=== PATIENT | male | born 1985 | race Caucasian/White ===

== ENCOUNTER 2017-01-13 07:55 | Emergency (ER) | payer OTHER ==
[2017-01-13 08:02] VITALS: RESP 18
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
[2017-01-13 09:28] VITALS: BP 162/88; PULSE 87; TEMP 98
== END 2017-01-13 09:27 | disposition home or self-care (01) ==
LOC: EC 07:55
DX: S49.91XA Unspecified injury of right shoulder and upper arm, initial encounter (principal); M54.5 Low back pain; V43.54XA Car driver injured in collision with van in traffic accident, initial encounter; Y92.410 Unspecified street and highway as the place of occurrence of the external cause
CPT/HCPCS: 72100; 99284

== ENCOUNTER 2019-05-01 00:11 | Emergency (ER) | payer BC, OTHER ==
[2019-05-01 00:36] VITALS: TEMP 98
--- NOTE | 2019-05-01 01:00 | XR ---
EXAMINATION TYPE: XR chest 2V DATE OF EXAM: 05/01/2019 COMPARISON: 11/10/2014 HISTORY: Cough and congestion TECHNIQUE: FINDINGS: Heart and mediastinum are normal. Lungs are clear. Diaphragm is normal. Bony thorax appears normal. IMPRESSION: Normal chest. No change.
[2019-05-01] MEDS ORDERED: IPRATROPIUM-ALBUTEROL 3 ML NEB INHALATION STA (01:25)
--- NOTE | 2019-05-01 01:29 | ED ---
URI HPI - General Chief Complaint: Upper Respiratory Infection Stated Complaint: wheezing, cough Time Seen by Provider: 05/01/19 01:18 Source: patient, family Mode of arrival: ambulatory Limitations: no limitations - History of Present Illness Initial Comments: 33-year-old male patient presents to the emergency department today for evaluation of upper respiratory symptoms and shortness of breath. Patient states he has been sick for the last couple of days with symptoms. Patient does have a history of asthma and has been wheezing with this illness. Reports nasal congestion and drainage. He does report sore throat and pressure to his ears. He states he has been having hot and cold flashes but has no documented temperatures. Denies taking any medication for his symptoms. He states he has been told has had a heart condition in the past but stopped taking medications about a year ago for this. Patient denies any recent rash, chest pain, abdominal pain, nausea, vomiting, diarrhea, constipation, back pain, numbness, tingling, dizziness, weakness, hematuria, dysuria, urinary urgency, urinary frequency, headache, visual changes, or any other complaints. - Related Data Previous Rx's Medication Instructions Recorded Ibuprofen [Motrin] 600 mg PO Q6HR PRN #30 day 01/13/17 Albuterol Sulfate [Proair Hfa] 1 - 2 puff INHALATION Q6HR PRN #1 05/01/19 inhaler guaiFENesin-DM 600/30MG [Mucinex 1 each PO Q12HR #10 tab.er.12h 05/01/19 Dm] predniSONE 50 mg PO DAILY #5 tablet 05/01/19 Allergies Allergy/AdvReac Type Severity Reaction Status Date / Time amoxicillin Allergy Rash/Hives Verified 05/01/19 00:36 Review of Systems ROS Statement: Those systems with pertinent positive or pertinent negative responses have been documented in the HPI. ROS Other: All systems not noted in ROS Statement are negative. Past Medical History Past Medical History: Hypertension History of Any Multi-Drug Resistant Organisms: None Reported Past Surgical History: No Surgical Hx Reported Past Psychological History: No Psychological Hx Reported Smoking Status: Never smoker Past Alcohol Use History: None Reported Past Drug Use History: None Reported General Exam Limitations: no limitations General appearance: alert, in no apparent distress, other (Physical well- developed, well-nourished adult male patient in no acute distress. Vital signs upon presentation are temperature 98.0F, pulse 91, respirations 20, blood pressure 174/115, pulse ox 97% on room air.) Eye exam: Present: normal appearance, PERRL, EOMI. Absent: scleral icterus, conjunctival injection, periorbital swelling ENT exam: Present: mucous membranes moist, TM's normal bilaterally. Absent: normal oropharynx (Pharyngeal erythema) Respiratory exam: Present: wheezes (Mild x-ray wheezing noted in the posterior lung zamora). Absent: respiratory distress, rales, rhonchi, stridor Cardiovascular Exam: Present: regular rate, normal rhythm, normal heart sounds. Absent: systolic murmur, diastolic murmur, rubs, gallop, clicks GI/Abdominal exam: Present: soft, normal bowel sounds. Absent: distended, tenderness, guarding, rebound, rigid Neurological exam: Present: alert, oriented X3, CN II-XII intact Psychiatric exam: Present: normal affect, normal mood Skin exam: Present: warm, dry, intact, normal color. Absent: rash Course Vital Signs 05/01/19 05/01/19 05/01/19 00:31 01:37 01:48 Temperature 98 F Pulse Rate 91 102 H 98 Respiratory 20 Rate Blood Pressure 174/115 O2 Sat by Pulse 97 Oximetry 05/01/19 02:12 Temperature Pulse Rate 96 Respiratory 18 Rate Blood Pressure 145/80 O2 Sat by Pulse 95 Oximetry Medical Decision Making - Medical Decision Making 33-year-old male patient presents to the emergency department today for evaluation of cough, congestion, and wheezing. Physical examination reveals mild expiratory wheezing in the posterior lung zamora. He is not short of breath. Chest x-ray shows no acute cardio pulmonary process. He was given a DuoNeb breathing treatment Mucinex DM. He is also started on steroids. Influenza testing was negative. He'll be discharged with prednisone, Pro Air, and Mucinex. Is instructed to follow-up with his primary care physician for recheck in 1-2 days. Return parameters discussed in detail. He verbalizes understanding and agrees with this plan. - Lab Data Lab Results 05/01/19 Range/Units 00:38 Influenza Type A RNA Not Detected (Not Detectd) Influenza Type B (PCR) Not Detected (Not Detectd) - Radiology Data Radiology results: report reviewed, image reviewed Two-view x-ray of the chest is obtained. Report reviewed in its entirety. Impression by Dr. Salazar shows normal chest. No change. Disposition Clinical Impression: Upper respiratory infection Disposition: HOME SELF-CARE Condition: Good Instructions (If sedation given, give patient instructions): Upper Respiratory Infection (ED) Additional Instructions: Take medications as directed. Increase fluids. Follow-up with your primary care physician for recheck in 1-2 days. Return to the emergency department immediately for any new, worsening, or concerning symptoms. Prescriptions: guaiFENesin-DM 600/30MG [Mucinex Dm] 1 each PO Q12HR #10 tab.er.12h predniSONE 50 mg PO DAILY #5 tablet Albuterol Sulfate [Proair Hfa] 1 - 2 puff INHALATION Q6HR PRN #1 inhaler PRN Reason: Shortness Of Breath Is patient prescribed a controlled substance at d/c from ED?: No Referrals: Evangelist Rosales MD [REFERRING] - 1-2 days Time of Disposition: 01:57
[2019-05-01] MEDS ORDERED: guaiFENesin-DM 600/30MG 1 EACH TAB.ER.12H PO ONE (01:35)
[2019-05-01] MEDS ORDERED: predniSONE 50 MG TAB PO STA (01:38)
[2019-05-01 02:14] VITALS: BP 145/80; PULSE 96; RESP 18
== END 2019-05-01 02:12 | disposition home or self-care (01) ==
LOC: EC 00:11
DX: J06.9 Acute upper respiratory infection, unspecified (principal); I10 Essential (primary) hypertension; Z88.0 Allergy status to penicillin
CPT/HCPCS: 94640; 87502; 71046; 99285; J7512

== ENCOUNTER 2020-07-08 17:07 | Emergency (ER) | payer BC, OTHER ==
[2020-07-08 17:14] VITALS: BP 158/93; PULSE 87; RESP 20; TEMP 98
[2020-07-08] MEDS ORDERED: LIDOCAINE 1% INJ 10MG/ML (20 ML MDV) SQ STA (17:24)
--- NOTE | 2020-07-08 17:25 | ED ---
Wound/Laceration HPI - General Chief Complaint: Wound/Laceration Stated Complaint: R Arm Lac Time Seen by Provider: 07/08/20 17:16 Source: patient, RN notes reviewed Mode of arrival: ambulatory Limitations: no limitations - History of Present Illness Initial Comments: 35-year-old white male obese patient presents to the emergency room with approximately 8 cm superficial laceration to the right dorsal forearm obtained 45 minutes prior to arrival on sheet metal. Patient states washed at home with hydrogen peroxide. States tetanus shot is not up-to-date. -: minutes(s) (45) Location: other (right forearm) Extremity Location: Right: Forearm Place: work Patient Tetanus UTD: No Context: accidental (sheet metal) Associated Symptoms: none - Related Data Previous Rx's Medication Instructions Recorded Ibuprofen [Motrin] 600 mg PO Q6HR PRN #30 day 01/13/17 Albuterol Sulfate [Proair Hfa] 1 - 2 puff INHALATION Q6HR PRN #1 05/01/19 inhaler guaiFENesin-DM 600/30MG [Mucinex 1 each PO Q12HR #10 tab.er.12h 05/01/19 Dm] predniSONE 50 mg PO DAILY #5 tablet 05/01/19 Allergies Allergy/AdvReac Type Severity Reaction Status Date / Time amoxicillin Allergy Rash/Hives Verified 07/08/20 17:14 Review of Systems ROS Statement: Those systems with pertinent positive or pertinent negative responses have been documented in the HPI. ROS Other: All systems not noted in ROS Statement are negative. Past Medical History Past Medical History: Hypertension History of Any Multi-Drug Resistant Organisms: None Reported Past Surgical History: No Surgical Hx Reported Past Psychological History: No Psychological Hx Reported Smoking Status: Never smoker Past Alcohol Use History: None Reported Past Drug Use History: None Reported General Exam Limitations: no limitations General appearance: alert, in no apparent distress Head exam: Present: atraumatic, normocephalic, normal inspection Eye exam: Present: normal appearance (wears glasses), PERRL, EOMI. Absent: scleral icterus, conjunctival injection, periorbital swelling Cardiovascular Exam: Present: regular rate, normal rhythm, normal heart sounds. Absent: systolic murmur, diastolic murmur, rubs, gallop, clicks Right Forearm Wrist exam: Present: laceration (8cm laceration superficial, no active bleeding) Neurological exam: Present: alert, oriented X3, CN II-XII intact Psychiatric exam: Present: normal affect, normal mood Skin exam: Present: warm, dry, intact, normal color. Absent: rash Course Vital Signs 07/08/20 17:11 Temperature 98.0 F Pulse Rate 87 Respiratory 20 Rate Blood Pressure 158/93 O2 Sat by Pulse 99 Oximetry Medical Decision Making - Medical Decision Making 8 cm laceration of right forearm superficial, cut on sheet metal at home, irrigated with water and peroxide prior to arrival.. tetanus updated today. 12 sutures placed for Vicryl. Case discussed with Dr. Espino. Disposition Clinical Impression: Arm laceration, Laceration Disposition: HOME SELF-CARE Condition: Good Additional Instructions: Sutures to be removed in 7-10 days. Please return to the emergency room if signs or symptoms of infection. Is patient prescribed a controlled substance at d/c from ED?: No Referrals: Evangelist Rosales MD [Primary Care Provider] - 1-2 days Time of Disposition: 18:14
[2020-07-08] MEDS ORDERED: DIPH,PERTUS(ACELL)TETVAC-LF 0.5 ML VIAL IM ONE (17:32)
--- NOTE | 2020-07-08 18:20 | ED ---
Disposition Clinical Impression: Arm laceration, Laceration Disposition: HOME SELF-CARE Condition: Good Additional Instructions: Sutures to be removed in 7-10 days. Please return to the emergency room if signs or symptoms of infection. Is patient prescribed a controlled substance at d/c from ED?: No Referrals: Evangelist Rosales MD [Primary Care Provider] - 1-2 days Procedures - Laceration Laceration #1 Indication: laceration Site: other (forearm) Size (cm): 8 (right dorsal forearm) Anesthetic Used: lidocaine 1% Anesthesia Technique: local infiltration Pre-repair: irrigated extensively Type of Sutures: nylon Size of Sutures: 4-0 Number of Sutures: 12 Technique: simple, interrupted Patient Tolerated Procedure: well, no complications
== END 2020-07-08 18:27 | disposition home or self-care (01) ==
LOC: EC 17:07
DX: S51.811A Laceration without foreign body of right forearm, initial encounter (principal); Z88.0 Allergy status to penicillin; Z23 Encounter for immunization; W26.8XXA Contact with other sharp object(s), not elsewhere classified, initial encounter; Y92.69 Other specified industrial and construction area as the place of occurrence of the external cause; Y99.0 Civilian activity done for income or pay
CPT/HCPCS: 90715; 99282; 12004; 90471; J2001

== ENCOUNTER 2024-02-27 10:19 | Emergency (ER) | payer BC, OTHER ==
[2024-02-27 10:49] VITALS: RESP 18
[2024-02-27] MEDS: HYDROcodone/APAP 10-325MG 1 EACH TAB PO ONE ×2 (11:40→13:11)
[2024-02-27] MEDS: ORPHENADRINE 30 MG/ML 2 ML VIAL IM STA (11:40)
[2024-02-27] MEDS: DEXAMETHASONE SOD PHOSPHATE 10 MG/ML 1 ML VIAL IM STA (11:41)
[2024-02-27] MEDS: KETOROLAC 15 MG/ML 1 ML VIAL IM STA (11:41)
[2024-02-27] MEDS: LIDOCAINE 4% PATCH TOPICAL ONE (11:46)
--- NOTE | 2024-02-27 12:03 | ED ---
Back Pain HPI - General Chief Complaint: Back Pain/Injury Stated Complaint: back pain Time Seen by Provider: 02/27/24 11:03 Source: patient, RN notes reviewed Mode of arrival: ambulatory Limitations: no limitations - History of Present Illness Initial Comments: This is a 38-year-old male who presents to the emergency department for back pain. Patient reports right lower back pain over the last week. States that this has started to radiate down into his right leg. Denies any injuries or history of similar symptoms in the past. No history of sciatica. He is taking ibuprofen without any relief in symptoms. Denies any loss of bowel/bladder control or saddle anesthesia. MD Complaint: back pain - Related Data Previous Rx's Medication Instructions Recorded Ibuprofen [Motrin] 600 mg PO Q6HR PRN #30 day 01/13/17 Albuterol Sulfate [Proair Hfa] 1 - 2 puff INHALATION Q6HR PRN #1 05/01/19 inhaler guaiFENesin-DM 600/30MG [Mucinex 1 each PO Q12HR #10 tab.er.12h 05/01/19 Dm] predniSONE 50 mg PO DAILY #5 tablet 05/01/19 Lidocaine 5% Patch [Lidoderm 5% 1 patch TOPICAL DAILY PRN #30 patch 02/27/24 Patch] methocarbamoL [Robaxin-750] 1,500 mg PO TID PRN #30 tab 02/27/24 predniSONE 50 mg PO DAILY 5 Days #5 tab 02/27/24 Allergies Allergy/AdvReac Type Severity Reaction Status Date / Time amoxicillin Allergy Rash/Hives Verified 02/27/24 10:49 Review of Systems ROS Statement: Those systems with pertinent positive or pertinent negative responses have been documented in the HPI. ROS Other: All systems not noted in ROS Statement are negative. Past Medical History Past Medical History: Hypertension History of Any Multi-Drug Resistant Organisms: None Reported Past Surgical History: No Surgical Hx Reported Past Psychological History: No Psychological Hx Reported Smoking Status: Never smoker Past Alcohol Use History: None Reported Past Drug Use History: None Reported General Exam Limitations: no limitations General appearance: alert, in no apparent distress Head exam: Present: atraumatic, normocephalic, normal inspection Respiratory exam: Present: normal lung sounds bilaterally. Absent: respiratory distress, wheezes, rales, rhonchi, stridor Cardiovascular Exam: Present: regular rate, normal rhythm, normal heart sounds. Absent: systolic murmur, diastolic murmur, rubs, gallop, clicks Back exam: Present: other (Tenderness over the right lower back) Neurological exam: Present: alert, oriented X3, CN II-XII intact Psychiatric exam: Present: normal affect, normal mood Skin exam: Present: warm, dry, intact, normal color. Absent: rash Course Vital Signs 02/27/24 02/27/24 10:45 13:13 Temperature 98.1 F 97.9 F Pulse Rate 88 82 Respiratory 18 18 Rate Blood Pressure 140/86 136/80 O2 Sat by Pulse 95 96 Oximetry Medical Decision Making - Medical Decision Making This is a 38-year-old male who presents to the emergency department for back pain. Was pt. sent in by a medical professional or institution? @ -No Did you speak to anyone other than the patient for history? @ -No Did you review nursing and triage notes? @ -Yes, and I agree, it is accurate with regards to the patient's symptoms. Were old charts reviewed? @ -No Differential Diagnosis? @ -Differential Back Pain: Strain, zoster, cauda equina syndrome, epidural abscess, vertebral osteomyelitis, discitis, fracture, subluxation, disc herniation, DJD, spinal stenosis, dissection, AAA, pancreatitis, peptic ulcer disease, pyelonephritis, kidney stone, this is not meant to be an all-inclusive list. EKG interpreted by me (3pts min.)? @ -Not obtained X-rays interpreted by me (1pt min.)? @ -X-ray of the lumbar spine obtained. My interpretation identifies no acute fractures. CT interpreted by me (1pt min.)? @ -Not obtained U/S interpreted by me (1pt. min.)? @ -Not obtained What testing was considered but not performed? (CT, X-rays, U/S, labs)? Why? @ -None What meds were considered but not given? Why? @ -None Did you discuss the management of the patient with other professionals? @ -No Did you reconcile home meds? @ -No Was smoking cessation discussed for >3mins.? @ -No Was critical care preformed (if so, how long)? @ -No Were there social determinants of health that impacted care today? How? (Homelessness, low income, unemployed, alcoholism, drug addiction, transportation, low edu. Level, literacy, decrease access to med. care, senior living, rehab)? @ -No Was there de-escalation of care discussed even if they declined? (Discuss DNR or withdrawal of care, Hospice)? @ -No What co-morbidities impacted this encounter? (DM, HTN, Smoking, COPD, CAD, Cancer, CVA, Hep., AIDS, mental health diagnosis, sleep apnea, morbid obesity)? @ -Morbid obesity Was patient admitted / discharged? @ -Discharged. Patient had no red flag signs or symptoms such as loss of bowel/bladder control or saddle anesthesia. X-ray of the lumbar spine demonstrates multilevel mild to moderate degenerative disc disease, chronic appearing wedge deformities at T12, and an age-indeterminate mild superior endplate compression deformity at L1. Findings reviewed with the patient in that these are fairly substantial changes for his age. His pain was managed in the emergency department. Symptoms likely related to lumbar radiculopathy/sciatica. Prescription for prednisone, Robaxin, and lidocaine patches provided. Information for orthopedic follow-up provided for further evaluation of his ongoing symptoms given the findings on imaging. Patient discharged home in stable condition. Case discussed with ED attending Dr. Goldberg. Return precautions reviewed in depth, the patient is instructed to return to the emergency department with any new, worsening, or concerning symptoms. Patient verbalized understanding. Undiagnosed new problem with uncertain prognosis? @ -None Drug Therapy requiring intensive monitoring for toxicity (Heparin, Nitro, Insulin, Cardizem)? @ -None Were any procedures done? @ -None Diagnosis/symptom? @ -Sciatica, lumbar radiculopathy Acute, or Chronic, or Acute on Chronic? @ -Acute Uncomplicated (without systemic symptoms) or Complicated (systemic symptoms)? @ -Uncomplicated Side effects of treatment? @ -None Exacerbation, Progression, or Severe Exacerbation] @ -Not applicable Poses a threat to life or bodily function? @ -No - Radiology Data Radiology results: report reviewed, image reviewed Disposition Clinical Impression: Lumbar radiculopathy, Sciatica Disposition: HOME SELF-CARE Instructions (If sedation given, give patient instructions): Sciatica (ED), Lumbar Radiculopathy (ED) Additional Instructions: Return to the emergency department with any new, worsening, or concerning symptoms. Take the prednisone daily for 5 days. Take the Robaxin as 1 to 2 tablets up to 3-4 times daily. You can also apply the lidocaine patches daily. Reach out to the spine specialists listed below. You should have your pain reevaluated as your back has areas of degeneration and old fractures. Follow up with your primary care provider in 1-2 days. Prescriptions: Lidocaine 5% Patch [Lidoderm 5% Patch] 1 patch TOPICAL DAILY PRN #30 patch PRN Reason: Pain predniSONE 50 mg PO DAILY 5 Days #5 tab methocarbamoL [Robaxin-750] 1,500 mg PO TID PRN #30 tab PRN Reason: Pain Is patient prescribed a controlled substance at d/c from ED?: No Referrals: None,Stated [Primary Care Provider] - 1-2 days Bar Kang DO [Doctor of Osteopathic Medicine] - 1-2 days Kadeem Tariq DO [Doctor of Osteopathic Medicine] - 1-2 days Time of Disposition: 13:03
--- NOTE | 2024-02-27 12:44 | XR ---
EXAMINATION TYPE: XR lumbar spine 2 or 3V DATE OF EXAM: 02/27/2024 12:30 PM COMPARISON: None. CLINICAL INDICATION: Male, 38 years old with history of Pain; TECHNIQUE: XR lumbar spine 2 or 3V views are submitted. FINDINGS: Alignment is anatomic. The pedicles are intact. The transverse processes are intact. There is mini mal loss of vertebral height at the thoracolumbar junction with multilevel hypertrophic and degenerat kavitha disc disease. Facet arthropathy lower lumbar and mid lumbar spine. IMPRESSION: 1. Multilevel [id number] degenerative disc disease most marked at levels T11-L4. 2. Chronic appearing wedge deformities T12. 3. Age-indeterminate mild superior endplate compression deformity L1. [facility], , 02/27/2024 12:41 PM
[2024-02-27] MEDS: ACET/COD 300 MG/30 MG STARTER PACK 6 TAB BTL PO STA (13:10)
[2024-02-27 13:15] VITALS: BP 136/80; PULSE 82; TEMP 97.9
== END 2024-02-27 13:15 | disposition home or self-care (01) ==
LOC: EC 10:19
DX: M54.16 Radiculopathy, lumbar region (principal); M54.31 Sciatica, right side; Z88.0 Allergy status to penicillin
CPT/HCPCS: 72100; 99283; 96372 ×3; J1100; J2360; J1885

== ENCOUNTER 2024-07-04 08:25 | Observation (INO) | payer OTHER ==
--- NOTE | 2024-07-04 09:34 | XR ---
EXAMINATION TYPE: XR chest 2V DATE OF EXAM: 07/04/2024 CLINICAL INDICATION: Male, 39 years old with history of difficulty breathing, TECHNIQUE: Frontal and lateral views of the chest are obtained. COMPARISON: Chest x-ray May 01, 2019 FINDINGS: Elevated left hemidiaphragm is present. Increased interstitial markings bilaterally. There is no focal air space opacity, pleural effusion, or pneumothorax seen. The cardiac silhouette size i s stable and within normal limits. The osseous structures are intact. IMPRESSION: Possible mild bilateral interstitial edema. Correlate clinically for fluid overload state . [facility], , 07/04/2024 9:32 AM
--- NOTE | 2024-07-04 09:44 | ED ---
General Adult HPI - General Chief complaint: Shortness of Breath Stated complaint: SOB, heart beating fast Time Seen by Provider: 07/04/24 08:28 Source: patient, family, RN notes reviewed Mode of arrival: ambulatory Limitations: no limitations - History of Present Illness Initial comments: 39-year-old male presents emergency department with chief complaint of shortness of breath. Patient states has been having worsening shortness of breath over the last month. He states initially started with influenza A states he went back was told he had pneumonia spent multiple rounds of medications with no relief of symptoms. He states he does have a history of asthma he is not on any current medications in which she supposed be on meds for hypertension denies any history of congestive heart failure but states that he has been told that his heart does not pump properly. Patient states he does not have a current primary care physician he states he has had increasing fatigue, shortness of breath, some leg swelling. - Related Data Home Medications Medication Instructions Recorded Confirmed Albuterol Sulfate [Proair Hfa] 2 puff INHALATION RT-QID PRN 07/04/24 07/04/24 Allergies Allergy/AdvReac Type Severity Reaction Status Date / Time amoxicillin Allergy Rash/Hives Verified 07/04/24 10:28 Review of Systems ROS Statement: Those systems with pertinent positive or pertinent negative responses have been documented in the HPI. ROS Other: All systems not noted in ROS Statement are negative. Past Medical History Past Medical History: Hypertension History of Any Multi-Drug Resistant Organisms: None Reported Past Surgical History: No Surgical Hx Reported Past Psychological History: No Psychological Hx Reported Smoking Status: Never smoker Past Alcohol Use History: None Reported Past Drug Use History: None Reported General Exam Limitations: no limitations General appearance: alert, in no apparent distress Head exam: Present: atraumatic, normocephalic, normal inspection Eye exam: Present: normal appearance, PERRL, EOMI. Absent: scleral icterus, conjunctival injection, periorbital swelling ENT exam: Present: normal exam, normal oropharynx, mucous membranes moist Neck exam: Present: normal inspection. Absent: tenderness, meningismus, lymphadenopathy Respiratory exam: Present: wheezes, rales. Absent: respiratory distress, rhonchi, stridor Cardiovascular Exam: Present: normal rhythm, tachycardia, normal heart sounds. Absent: systolic murmur, diastolic murmur, rubs, gallop, clicks GI/Abdominal exam: Present: soft, normal bowel sounds. Absent: distended, tenderness, guarding, rebound, rigid Course Vital Signs 07/04/24 07/04/24 07/04/24 08:31 09:30 10:00 Temperature 98 F Pulse Rate 104 H 82 83 Respiratory 20 20 22 Rate Blood Pressure 158/102 160/88 130/74 O2 Sat by Pulse 99 92 L 92 L Oximetry 07/04/24 07/04/24 11:09 13:18 Temperature Pulse Rate 81 76 Respiratory 20 18 Rate Blood Pressure 154/76 136/75 O2 Sat by Pulse 93 L 90 L Oximetry EKG Findings - EKG Comments: EKG Findings:: EKG performed at 9: 27 sinus rhythm with a rate of 82 KS 136 QRS 107 QT/QTc 357/395 - EKG Results: EKG: interpreted by [facility] Medical Decision Making - Medical Decision Making Was pt. sent in by a medical professional or institution (, PA, [employer], urgent care, hospital, or penitentiary...) When possible be specific @ -No Did you speak to anyone other than the patient for history (EMS, parent, family, police, friend...)? What history was obtained from this source @ -No Did you review nursing and triage notes (agree or disagree)? Why? @ -I reviewed and agree with nursing and triage notes Were old charts reviewed (outside hosp., previous admission, EMS record, old EKG, old radiological studies, urgent care reports/EKG's, penitentiary records)? Report findings @ -No old charts were reviewed Differential Diagnosis (chest pain, altered mental status, abdominal pain women, abdominal pain men, vaginal bleeding, weakness, fever, dyspnea, syncope, headache, dizziness, GI bleed, back pain, seizure, CVA, palpatations, mental health, musculoskeletal)? @ -Differential Dyspnea: Coronary syndrome, arrhythmia, tamponade, asthma, COPD, pulmonary embolism, pneumonia, pneumothorax, pulmonary effusion, anaphylaxis, diabetic ketoacidosis, flailed chest, pulmonary contusion, diaphragmatic rupture, anemia, neuromuscular, this is not meant to be an all-inclusive list. EKG interpreted by me (3pts min.). @ -As above X-rays interpreted by me (1pt min.). @ -Chest x-ray shows mild pulmonary edema CT interpreted by me (1pt min.). @ -CT PE angio chest is nondiagnostic of PE, there is atelectasis, pulmonary edema no effusion U/S interpreted by me (1pt. min.). @ -None done What testing was considered but not performed or refused? (CT, X-rays, U/S, labs)? Why? @ -None What meds were considered but not given or refused? Why? @ -None Did you discuss the management of the patient with other professionals (professionals i.e. , PA, [employer], lab, RT, psych nurse, social insurance administrator, collection systems worker, teacher, licensed mortgage loan officer, immigration case manager)? Give summary @ -[EMH for admission Was smoking cessation discussed for >3mins.? @ -No Was critical care preformed (if so, how long)? @ -No Were there social determinants of health that impacted care today? How? (Homelessness, low income, unemployed, alcoholism, drug addiction, transportation, low edu. Level, literacy, decrease access to med. care, long term, rehab)? @ -No Was there de-escalation of care discussed even if they declined (Discuss DNR or withdrawal of care, Hospice)? DNR status @ -No What co-morbidities impacted this encounter? (DM, HTN, Smoking, COPD, CAD, Cancer, CVA, ARF, Chemo, Hep., AIDS, mental health diagnosis, sleep apnea, morbid obesity)? @ -None Was patient admitted / discharged? Hospital course, mention meds given and route, prescriptions, significant lab abnormalities, going to OR and other pertinent info. @ -Admitted patient has having worsening exertional dyspnea, probable pulmonary edema with a low BNP. The patient did have hypoxic events in which his pulse ox was 88 in the room. Patient does have worsening symptoms with exertion. Patient will be admitted for echocardiogram, cardiology pulmonary evaluation. Undiagnosed new problem with uncertain prognosis? @ -No Drug Therapy requiring intensive monitoring for toxicity (Heparin, Nitro, Insulin, Cardizem)? @ -No Were any procedures done? @ -No Diagnosis/symptom? @ -Exertional dyspnea, hypoxia Acute, or Chronic, or Acute on Chronic? @ -Acute Uncomplicated (without systemic symptoms) or Complicated (systemic symptoms)? @ -Comp Side effects of treatment? @ -No Exacerbation, Progression, or Severe Exacerbation? @ -No Poses a threat to life or bodily function? How? (Chest pain, USA, SC, pneumonia, PE, COPD, DKA, ARF, appy, cholecystitis, CVA, Diverticulitis, Homicidal, Suicidal, threat to staff... and all critical care pts) @ -Yes exertional dyspnea, respiratory failure - Lab Data Result diagrams: 07/04/24 09:18 07/04/24 09:18 Lab Results 07/04/24 07/04/24 07/04/24 Range/Units 09:18 09:18 09:18 WBC 12.1 H (3.8-10.6) k/uL RBC 5.13 (4.30-5.90) m/uL Hgb 14.7 (13.0-17.5) gm/dL Hct 43.7 (39.0-53.0) % MCV 85.3 (80.0-100.0) fL MCH 28.7 (25.0-35.0) pg MCHC 33.6 (31.0-37.0) g/dL RDW 14.1 (11.5-15.5) % Plt Count 200 (150-450) k/uL MPV 7.1 Neutrophils % 69 % Lymphocytes % 24 % Monocytes % 4 % Eosinophils % 2 % Basophils % 0 % Neutrophils # 8.3 H (1.3-7.7) k/uL Lymphocytes # 2.9 (1.0-4.8) k/uL Monocytes # 0.5 (0-1.0) k/uL Eosinophils # 0.3 (0-0.7) k/uL Basophils # 0.0 (0-0.2) k/uL PT 11.5 (10.0-12.5) sec INR 1.1 (<1.2) APTT 23.1 (22.0-30.0) sec D-Dimer 0.65 H (<0.60) mg/L FEU Sodium 137 (137-145) mmol/L Potassium 3.9 (3.5-5.1) mmol/L Chloride 103 (98-107) mmol/L Carbon Dioxide 26 (22-30) mmol/L Anion Gap 8 mmol/L BUN 17 (9-20) mg/dL Creatinine 0.82 (0.66-1.25) mg/dL Est GFR (CKD-EPI)AfAm >90 (>60 ml/min/1.73 sqM) Est GFR (CKD-EPI)NonAf >90 (>60 ml/min/1.73 sqM) Glucose 139 H (74-99) mg/dL Plasma Lactic Acid Pedro Pablo (0.7-2.0) mmol/L Calcium 9.1 (8.4-10.2) mg/dL Magnesium 1.8 (1.6-2.3) mg/dL Total Bilirubin 0.7 (0.2-1.3) mg/dL AST 20 (17-59) U/L ALT 24 (4-49) U/L Alkaline Phosphatase 54 (38-126) U/L Troponin I (0.000-0.034) ng/mL NT-Pro-B Natriuret Pep <20 pg/mL Total Protein 6.8 (6.3-8.2) g/dL Albumin 3.8 (3.5-5.0) g/dL Influenza Type A (PCR) (Not Detectd) Influenza Type B (PCR) (Not Detectd) RSV (PCR) (Not Detectd) SARS-CoV-2 (PCR) (Not Detectd) 07/04/24 07/04/24 07/04/24 Range/Units 09:18 09:18 10:13 WBC (3.8-10.6) k/uL RBC (4.30-5.90) m/uL Hgb (13.0-17.5) gm/dL Hct (39.0-53.0) % MCV (80.0-100.0) fL MCH (25.0-35.0) pg MCHC (31.0-37.0) g/dL RDW (11.5-15.5) % Plt Count (150-450) k/uL MPV Neutrophils % % Lymphocytes % % Monocytes % % Eosinophils % % Basophils % % Neutrophils # (1.3-7.7) k/uL Lymphocytes # (1.0-4.8) k/uL Monocytes # (0-1.0) k/uL Eosinophils # (0-0.7) k/uL Basophils # (0-0.2) k/uL PT (10.0-12.5) sec INR (<1.2) APTT (22.0-30.0) sec D-Dimer (<0.60) mg/L FEU Sodium (137-145) mmol/L Potassium (3.5-5.1) mmol/L Chloride (98-107) mmol/L Carbon Dioxide (22-30) mmol/L Anion Gap mmol/L BUN (9-20) mg/dL Creatinine (0.66-1.25) mg/dL Est GFR (CKD-EPI)AfAm (>60 ml/min/1.73 sqM) Est GFR (CKD-EPI)NonAf (>60 ml/min/1.73 sqM) Glucose (74-99) mg/dL Plasma Lactic Acid Pedro Pablo 1.8 (0.7-2.0) mmol/L Calcium (8.4-10.2) mg/dL Magnesium (1.6-2.3) mg/dL Total Bilirubin (0.2-1.3) mg/dL AST (17-59) U/L ALT (4-49) U/L Alkaline Phosphatase (38-126) U/L Troponin I <0.012 (0.000-0.034) ng/mL NT-Pro-B Natriuret Pep pg/mL Total Protein (6.3-8.2) g/dL Albumin (3.5-5.0) g/dL Influenza Type A (PCR) Not Detected (Not Detectd) Influenza Type B (PCR) Not Detected (Not Detectd) RSV (PCR) Not Detected (Not Detectd) SARS-CoV-2 (PCR) Not Detected (Not Detectd) Disposition Clinical Impression: Exertional dyspnea, Hypoxia Disposition: ADMITTED IP TO THIS HOSP Condition: Fair Referrals: [facility] [NON-STAFF] - 1-2 days (Contact a primary care office to become established with a provider. ) None,Stated [Primary Care Provider] - 1-2 days Forms: Area PCPs Time of Disposition: 12:02
[2024-07-04 09:58] LABS: Basophils % (A) 0 %; Eosinophils # (A) 0.3 k/uL (0-0.7); Eosinophils % (A) 2 %; HCT 43.7 % (39.0-53.0); HGB 14.7 gm/dL (13.0-17.5); Lymphocytes # (A) 2.9 k/uL (1.0-4.8); Lymphocytes % (A) 24 %; MCH 28.7 pg (25.0-35.0); MCHC 33.6 g/dL (31.0-37.0); MCV 85.3 fL (80.0-100.0); Mean Platelet Volume 7.1; Monocytes # (A) 0.5 k/uL (0-1.0); Monocytes % (A) 4 %; Neutrophils # (A) 8.3 k/uL (1.3-7.7); Neutrophils % (A) 69 %; Platelet Count 200 k/uL (150-450); RBC 5.13 m/uL (4.30-5.90); RDW 14.1 % (11.5-15.5); WBC 12.1 k/uL (3.8-10.6)
[2024-07-04 10:01] LABS: INR 1.1 (<1.2); Partial Thromboplastin Time 23.1 sec (22.0-30.0); Prothrombin Time 11.5 sec (10.0-12.5)
[2024-07-04 10:10] LABS: ALT 24 U/L (4-49); AST 20 U/L (17-59); African American GFR (CKD) >90 (>60 ml/min/1.73 sqM); Albumin 3.8 g/dL (3.5-5.0); Alkaline Phosphatase 54 U/L (38-126); Anion Gap 8 mmol/L; Blood Urea Nitrogen 17 mg/dL (9-20); Calcium 9.1 mg/dL (8.4-10.2); Carbon Dioxide 26 mmol/L (22-30); Chloride 103 mmol/L (98-107); Glucose 139 mg/dL (74-99); Magnesium 1.8 mg/dL (1.6-2.3); Non-African American GFR(CKD) >90 (>60 ml/min/1.73 sqM); Potassium 3.9 mmol/L (3.5-5.1); Sodium 137 mmol/L (137-145); Total Bilirubin 0.7 mg/dL (0.2-1.3); Total Protein 6.8 g/dL (6.3-8.2)
[2024-07-04 10:18] LABS: NT-Pro-B-Type Natriuretic Pept <20 pg/mL
[2024-07-04 10:56] LABS: Influenza A Not Detected (Not Detectd); Influenza B Not Detected (Not Detectd); RSV Not Detected (Not Detectd)
--- NOTE | 2024-07-04 11:08 | CT ---
EXAMINATION TYPE: CT chest angio for PE DATE OF EXAM: 07/04/2024 10:55 AM COMPARISON: Chest radiograph from same day. CLINICAL INDICATION: Male, 39 years old with history of sob; DIFFIULTY BREATHING, ELEVATED D DIMER TECHNIQUE/CONTRAST: CTA scan of the thorax is performed with IV Contrast, patient injected with 100ml mL of Isovue 370, M IP images are created and reviewed these are created on a separate workstation.. CT DLP: 1517.6 mGycm, Automated exposure control for dose reduction was used. FINDINGS: Lungs/Pleura: Low lung volumes with some atelectasis changes. Elevated left diaphragm. No evidence of focal consolidation, pleural effusion or pneumothorax. Airway: Large airways are patent. Heart: Size within normal limits. No significant coronary artery calcifications. Vasculature: Nondiagnostic pulmonary embolism exam due to bolus timing. Mediastinum: No gross evidence of adenopathy. Musculoskeletal: No acute osseous abnormalities Soft Tissues/lymph nodes: Unremarkable. Lower neck: No significant findings. Upper Abdomen: No significant findings. IMPRESSION: 1. Nondiagnostic exam for pulmonary embolism due to poor bolus timing. 2. No evidence for focal airspace consolidation. 3. Left elevated diaphragm. [facility], , 07/04/2024 11:06 AM
[2024-07-04] MEDS ORDERED: NALOXONE 0.4 MG/ML 1 ML VIAL IV PRN (12:02)
--- NOTE | 2024-07-05 01:45 | P.CNPUL ---
History of Present Illness Consult date: 07/05/24 Requesting physician: Lee Connolly Reason for consult: dyspnea Chief complaint: Exertional shortness of breath History of present illness: Patient is a 39-year-old male with past medical history significant for hypertension, morbid obesity, asthma. States he does not have a current PCP due to lack of medical insurance which he has just obtained. Of note, recently diagnosed by local urgent care center, in [place], with influenza A infection, this was approximately 6 weeks ago. Unfortunately, did not have any improvement in symptoms. Did go to [facility] approximately 1- 1/2 to 2 weeks ago. Was told he has pneumonia, given antibiotics and discharged home from the emergency department. [place] slightly better but not back to baseline. Chief complaint episodes of dyspnea and heart palpitations with exertion. Presented to our emergency department yesterday morning. Workup in the emergency department including a viral 4 [place] screen which was negative for influenza A/B, RSV, COVID. Chest CTA was essentially nondiagnostic for pulmonary embolism due to poor bolus timing. No evidence of focal airspace disease. Elevated left hemidiaphragm. CBC: WBC count 12.1, hemoglobin 14.7, platelets 200. D-dimer 0.65. CMP unremarkable, electrolytes WDL, creatinine 0.82, glucose 139. Lactic 1.8. EKG: Sinus rhythm, rate 82 bpm, no ischemic changes. Troponin not elevated. NT proBNP also not elevated. Most recent available echocardiogram from 2014 estimating a mildly to moderately impaired left ventricular ejection fraction of 40 to 45%. Patient being evaluated on the cardiac observation unit. Currently on room air oxygen. Endorses above- mentioned symptoms. Occasional cough with clear to yellow sputum. No fevers. States he has been using his albuterol rescue inhaler without much relief. Does have history of adult onset asthma. Lifelong nontobacco smoker. 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 States that his breathing is particularly worse with any kind of exertion. Associated heart palpitations. Denies any lightness or syncopal events. Denies any chest pain. Occasional swelling of the lower extremities which disappears when elevating his legs. Also, reports excessive daytime sleepiness despite sleeping more than 10 hours per night. Reports episodic gasping for air in the middle of the night, which occasionally wakes him from sleep. Most recent reported vitals afebrile, heart rate 73 bpm, blood pressure 114/62 mmHg, nontachypneic, SpO2 rate 94% on room air. Review of Systems Constitutional: Reports fatigue, Denies chills, Denies fever, Denies night sweats, Denies poor appetite, Denies weight gain, Denies weight loss Ears, nose, mouth and throat: Reports sore throat, Denies headache, Denies nasal congestion, Denies nasal discharge, Denies post-nasal drip, Denies sinus pain, Denies sinus pressure Cardiovascular: Reports decreased exercise tolerance, Reports dyspnea on exertion, Reports leg edema, Reports palpitations, Denies chest pain, Denies orthopnea, Denies paroxysmal nocturnal dyspnea, Denies syncope Respiratory: Reports congestion, Reports cough with sputum, Reports wheezing, Denies hemoptysis Gastrointestinal: Reports nausea, Denies abdominal pain, Denies change in bowel habits, Denies diarrhea, Denies vomiting Genitourinary: Denies dysuria Musculoskeletal: Denies limitation of motion Integumentary: Denies rash Neurological: Denies seizures, Denies syncope Psychiatric: Denies anxiety, Denies depression Endocrine: Reports fatigue, Reports palpitations, Denies excessive sweating, Denies excessive thirst, Denies heat intolerance Past Medical History Past Medical History: Asthma, Hypertension Additional Past Medical History / Comment(s): pt reports "heart function problems" but cannot remember diagnosis. History of Any Multi-Drug Resistant Organisms: None Reported Past Surgical History: No Surgical Hx Reported Past Anesthesia/Blood Transfusion Reactions: No Reported Reaction Past Psychological History: No Psychological Hx Reported Smoking Status: Never smoker Past Alcohol Use History: None Reported Past Drug Use History: None Reported Medications and Allergies Home Medications Medication Instructions Recorded Confirmed Type Albuterol Sulfate [Proair Hfa] 2 puff INHALATION RT-QID PRN 07/04/24 07/04/24 History Allergies Allergy/AdvReac Type Severity Reaction Status Date / Time amoxicillin Allergy Rash/Hives Verified 07/04/24 10:28 Physical Exam Vitals: Vital Signs Temp Pulse Pulse Resp BP BP Pulse Ox 07/04/24 20:00 73 15 07/04/24 19:06 98.5 F 73 15 114/62 94 L 07/04/24 16:00 18 07/04/24 15:52 97.4 F L 76 16 135/88 95 07/04/24 15:25 97.6 F 77 18 128/81 96 07/04/24 13:18 76 18 136/75 90 L 07/04/24 11:09 81 20 154/76 93 L 07/04/24 10:00 83 22 130/74 92 L 07/04/24 09:30 82 20 160/88 92 L 07/04/24 08:31 98 F 104 H 20 158/102 99 Intake and Output 07/04/24 07/04/24 07/05/24 14:59 22:59 06:59 Other: # Voids 1 Weight 229.064 kg GENERAL EXAM: Alert, morbidly obese 39-year-old male, sitting up in bed, comfortable in no apparent distress. HEAD: Normocephalic and atraumatic EYES: Normal reaction of pupils, equal size. NOSE: Clear with pink turbinates. THROAT: No erythema or exudates. Mallampati class II NECK: No masses, no JVD. CHEST: No chest wall deformity. LUNGS: Equal air entry with no crackles, wheeze, rhonchi or dullness. On room air. No conversational dyspnea or accessory muscle use while at rest CVS: S1 and S2 normal with no audible murmur, regular rhythm. No extra heart sounds ABDOMEN: No hepatosplenomegaly, active bowel sounds, no guarding or rigidity. SPINE: No scoliosis or deformity SKIN: No rashes CENTRAL NERVOUS SYSTEM: No focal deficits, tone is normal in all 4 extremities. EXTREMITIES: There is no peripheral edema, clubbing, or cyanosis. Peripheral pulses are intact. Results - Laboratory Findings CBC and BMP: 07/04/24 09:18 07/04/24 09:18 PT/INR, D-dimer PT 11.5 sec (10.0-12.5) 07/04/24 09:18 INR 1.1 (<1.2) 07/04/24 09:18 D-Dimer 0.65 mg/L FEU (<0.60) H 07/04/24 09:18 Abnormal lab findings: Abnormal Labs 07/04/24 07/04/24 07/04/24 09:18 09:18 09:18 WBC 12.1 H Neutrophils # 8.3 H D-Dimer 0.65 H Glucose 139 H - Diagnostic Findings Chest x-ray: image reviewed CT scan - chest: image reviewed Assessment and Plan Assessment: Exertional dyspnea, Chest CTA was essentially nondiagnostic for pulmonary embolism due to poor bolus timing. No evidence of focal airspace disease. Elevated left hemidiaphragm. Elevated left hemidiaphragm, chronic Morbid obesity, with a BMI of 51.5 kg/m History of asthma, inactive History of mildly to moderately impaired left ventricular ejection fraction of 40 to 45% based on echocardiogram from 2014 Plan: Currently on room air No acute findings on chest CTA, study was nondiagnostic for pulmonary embolism due to poor bolus timing, however, PE felt to be less likely. No acute parenchymal findings Elevated left hemidiaphragm, which is chronic dating back to 2014 May benefit from outpatient sleep study Transthoracic echocardiogram ordered Patient to be seen by cardiology Case to be discussed with Dr. Bañuelos I have personally seen and examined the patient, performed the documentation and the assessment and plan as written. Number of minutes spent on the visit:20 Joint evaluation that was done along with the nurse practitioner. Evaluation was done at 31 minutes. Fully agree on the above-mentioned plan. The patient is currently on room air oxygen. Will need an outpatient sleep study. Cardiology follow-up. Will continue to follow Time with Patient: Greater than 30
[2024-07-05] MEDS ORDERED: ALBUTEROL NEBULIZED 2.5 MG/3 ML INHALATION PRN (01:46)
--- NOTE | 2024-07-05 07:06 | CA ---
Transthoracic Echo Report Name: Rome Jansen Age: 39 Gender: M : 1985 Exam Date: 07/04/2024 16:32 Exam Location: [facility] Ht (in): 71 Wt (lb): 505 Ordering Physician: Lee Connolly Attending/Referring Phys: [id number], Mohsen Venereal Disease Investigator Milka Oscar, SYL Procedure CPT: Indications: exertional dyspnea Cardiac Hx: Technical Quality: Very technically difficult study Contrast 1: Definity Total Dose (mL): 2 Contrast 2: Total Dose (mL): MEASUREMENTS (Male / Female) Normal Values 2D ECHO LV Diastolic Diameter PLAX 5.7 cm 4.2 - 5.9 / 3.9 - 5.3 cm LV Systolic Diameter PLAX 3.8 cm IVS Diastolic Thickness 1.5 cm 0.6 - 1.0 / 0.6 - 0.9 cm LVPW Diastolic Thickness 1.6 cm 0.6 - 1.0 / 0.6 - 0.9 cm LV Relative Wall Thickness 0.5 RV Internal Dim ED PLAX 2.8 cm LA Systolic Diameter LX 4.2 cm 3.0 - 4.0 / 2.7 - 3.8 cm LV Diastolic Volume MOD BP 108.8 cm??? 67 - 155 / 56 - 104 cm??? LV Systolic Volume MOD BP 56.9 cm??? - 58 / 19 - 49 cm??? LV Ejection Fraction MOD BP 47.7 % >= 55 % LV Cardiac Index MOD BP 983.8 cm???/min???m??? LV Diastolic Volume MOD 4C 188.2 cm??? LV Systolic Volume MOD 4C 84.8 cm??? LV Ejection Fraction MOD 4C 54.9 % LV Cardiac Index MOD 4C 1959.0 cm???/min???m??? LV Diastolic Length 4C 9.7 cm LV Systolic Length 4C 7.8 cm LV Diastolic Volume MOD 2C 158.3 cm??? LV Systolic Volume MOD 2C 84.4 cm??? LV Ejection Fraction MOD 2C 46.7 % LV Cardiac Index MOD 2C 1400.4 cm???/min???m??? LV Diastolic Length 2C 9.4 cm LV Systolic Length 2C 8.3 cm LA Volume 89.6 cm??? 18 - 58 / 22 - 52 cm??? LA Volume Index 25.3 cm???/m??? 16 - 28 cm???/m??? M-MODE Aortic Root Diameter MM 4.5 cm DOPPLER AV Peak Velocity 121.5 cm/s AV Peak Gradient 5.9 mmHg MV Area PHT 4.7 cm??? Mitral E Point Velocity 79.2 cm/s Mitral A Point Velocity 70.1 cm/s Mitral E to A Ratio 1.1 MV Deceleration Time 163.1 ms TR Peak Velocity 261.3 cm/s TR Peak Gradient 27.3 mmHg Right Ventricular Systolic Press 32.3 mmHg FINDINGS Left Ventricle Left ventricular ejection fraction is estimated at 55-60 %. Normal left ventricular systolic function with no obvious regional wall motion abnormalities. Left ventricular cavity size normal. Moderately increased left ventricular wall thickness. Right Ventricle Normal right ventricular size and function. Right ventricular systolic pressure within normal limits. Right Atrium Right atrium not well visualized. Left Atrium Mildly increased left atrial diameter. Severely increased left atrial volume. Mildly increased left atrial area. Mitral Valve Structurally normal mitral valve. No mitral stenosis, regurgitation or prolapse. Aortic Valve Trileaflet aortic valve. No aortic stenosis.aortic valve not well visualized. Tricuspid Valve Tricuspid valve not well visualized. Mild tricuspid regurgitation. Pulmonic Valve No pulmonic regurgitation.pulmonic valve not well visualized. Pericardium No pericardial effusion. Aorta Mild aortic dilatation at the level of the sinuses of valsalva 45 mm CONCLUSIONS Technically difficult study. Definity ECHO contrast used for improved visualization of the endocardial borders (inadequate visualization of two or more contiguous segments). Normal left ventricular size and systolic function Very limited Doppler study with mild tricuspid regurgitation Dilated ascending aorta Previewed by: Dr. Lili Lynn MD (Electronically Signed) Final Date: 05 July 2024 07:05
[2024-07-05] MEDS ORDERED: DOBUTamine DRIP for NUC MED 500 MG in DEXTROSE/WATER 1 250ML.BAG IV PRN (08:30)
--- NOTE | 2024-07-05 09:43 | P.HPIM ---
History of Present Illness H&P Date: 07/04/24 39-year-old male came in with complaints of shortness of breath has been going on for about a month progressive in nature. Patient had a recent influenza A and was also treated for with antibiotics for pneumonia patient is morbidly obese with a BMI of 51.5 had history of asthma in the past. Although workup here is negative patient has mild leukocytosis chest CT did not show any pulmonary embolism or pneumonia. Patient denied any fever chills. Patient had mild pedal edema denied orthopnea or paroxysmal nocturnal dyspnea. Cardiology and pulmonary consulted and will obtain a BNP and also patient will most likely need further sleep study testing in the outpatient setting as patient continues to desat quickly. REVIEW OF SYSTEMS: All other systems are negative except those mentioned in the HPI PHYSICAL EXAMINATION: GENERAL: The patient is alert and oriented x3, not in any acute distress. Well developed, well nourished. HEENT: Pupils are round and equally reacting to light. EOMI. No scleral icterus. No conjunctival pallor. Normocephalic, atraumatic. No pharyngeal erythema. No thyromegaly. CARDIOVASCULAR: S1 and S2 present. No murmurs, rubs, or gallops. PULMONARY: Chest is clear to auscultation, no wheezing or crackles. ABDOMEN: Soft, nontender, nondistended, normoactive bowel sounds. No palpable organomegaly. MUSCULOSKELETAL: No joint swelling or deformity. EXTREMITIES: No cyanosis, clubbing, or pedal edema. NEUROLOGICAL: Gross neurological examination did not reveal any focal deficits. SKIN: No rashes. Assessment and plan Shortness of breath and hypoxemia: Probably secondary to restrictive lung disease obesity hypoventilation syndrome. Will rule out any coronary artery disease. Cardiology was consulted for that reason pulmonary was consulted as well. proBNP will be obtained. CT shows mild alveolar edema. Patient continues to desat with low oxygenation and does not wear oxygen outpatient. Patient will need further sleep study testing outpatient -Leukocytosis reactive without any clear evidence of infection DVT prophylaxis: Lovenox 60 mg subcutaneous Past Medical History Past Medical History: Hypertension History of Any Multi-Drug Resistant Organisms: None Reported Past Surgical History: No Surgical Hx Reported Past Psychological History: No Psychological Hx Reported Smoking Status: Never smoker Past Alcohol Use History: None Reported Past Drug Use History: None Reported Medications and Allergies Home Medications Medication Instructions Recorded Confirmed Type Albuterol Sulfate [Proair Hfa] 2 puff INHALATION RT-QID PRN 07/04/24 07/04/24 History Allergies Allergy/AdvReac Type Severity Reaction Status Date / Time amoxicillin Allergy Rash/Hives Verified 07/04/24 10:28 Physical Exam Vitals: Vital Signs Temp Pulse Resp BP Pulse Ox 07/04/24 13:18 76 18 136/75 90 L 07/04/24 11:09 81 20 154/76 93 L 07/04/24 10:00 83 22 130/74 92 L 07/04/24 09:30 82 20 160/88 92 L 07/04/24 08:31 98 F 104 H 20 158/102 99 Intake and Output 07/03/24 07/04/24 07/04/24 22:59 06:59 14:59 Other: Weight 229.064 kg Results CBC & Chem 7: 07/04/24 09:18 07/04/24 09:18 Labs: Abnormal Lab Results - Last 24 Hours (Table) 07/04/24 07/04/24 07/04/24 Range/Units 09:18 09:18 09:18 WBC 12.1 H (3.8-10.6) k/uL Neutrophils # 8.3 H (1.3-7.7) k/uL D-Dimer 0.65 H (<0.60) mg/L FEU Glucose 139 H (74-99) mg/dL
--- NOTE | 2024-07-05 11:38 | P.CRDCN ---
History of Present Illness History of present illness: HISTORY OF PRESENT ILLNESS: This is a 39-year-old male with a past medical history significant for hypertension, asthma, and morbid obesity. Patient does not follow with a database marketing specialist. We have been asked to see the patient in consultation for shortness of breath. Patient examined at the bedside. Patient reports he had the flu and then pneumonia about 6 weeks ago. He states since that time he has been experiencing shortness of breath. He also reports feeling intermittent heart fluttering. He reports that his chest has felt heavy as well on and off for the past 6 weeks. 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 He is a non-smoker. He denies any alcohol use. He does have a history of hypertension but states he is not taking any medications as he has not had any insurance. He also does not follow with a primary care physician. DIAGNOSTICS: - EKG reveals sinus mechanism with no signs of acute ischemia. - Chest xray possible mild bilateral interstitial edema. - Chest CTA: Nondiagnostic exam for pulmonary embolism due to poor bolus timing, no evidence for focal airspace consolidation, left elevated diaphragm. - Laboratory data: WBC 12.1. Hemoglobin 14.7. Platelet count 200. D-dimer 0.65. Sodium 137. Potassium 3.9. BUN 17. Creatinine 0.82. Magnesium 1.8. Troponin negative x 1. proBNP less than 20. TSH 1.860. - Current home cardiac medications include none -Echocardiogram obtained this admission reveals ejection fraction 55 to 60%, no obvious regional wall motion abnormalities, mild TR. - Cardiac catheterization history: Patient denies REVIEW OF SYSTEMS: At the time of my exam: CONSTITUTIONAL: Denies fever or chills. HEENT: Denies blurred vision, vision changes, or eye pain. Denies hemoptysis CARDIOVASCULAR: Denies chest pain. Denies orthopnea. Denies PND. Denies palpi tations RESPIRATORY: Denies shortness of breath. GASTROINTESTINAL: Denies abdominal pain. Denies nausea or vomiting. HEMATOLOGIC: Denies bleeding disorders. GENITOURINARY: Denies any blood in urine. SKIN: Denies pruitis. Denies rash. PHYSICAL EXAM: VITAL SIGNS: Reviewed. GENERAL: Well-developed in no acute distress. HEENT: Head is normocephalic. Pupils are equal, round. Sclerae anicteric. Mucous membranes of the mouth are moist. Neck supple. No JVD or thyromegaly LUNGS: Respirations even and unlabored. Lungs essentially clear to auscultation bilaterally. HEART: Regular rate and rhythm. S1 and S2 heard. ABDOMEN: Soft. Nondistended. Nontender. EXTREMITIES: Normal range of motion. No clubbing or cyanosis. Peripheral pulses intact. Significant varicose veins noted on bilateral lower extremities. NEUROLOGIC: Awake and alert. Oriented x 3. ASSESSMENT: Shortness of breath and chest discomfort, intermittently x 6 weeks Recent influenza and pneumonia, per patient approximately 6 weeks ago Hypertension, not on any medications outpatient History of asthma Morbid obesity: BMI 51.5 PLAN: An acute coronary event has been ruled out 2D echo obtained and reviewed Check lipid panel and hemoglobin A1c Recommend outpatient obstructive sleep apnea evaluation Patient to undergo dobutamine stress test today If negative, patient may be discharged home from a cardiac standpoint Nurse practitioner note has been reviewed by physician. Signing provider agrees with the documented findings, assessment, and plan of care documented by C[employer] as a scribe. Past Medical History Past Medical History: Asthma, Hypertension Additional Past Medical History / Comment(s): pt reports "heart function problems" but cannot remember diagnosis. History of Any Multi-Drug Resistant Organisms: None Reported Past Surgical History: No Surgical Hx Reported Past Anesthesia/Blood Transfusion Reactions: No Reported Reaction Past Psychological History: No Psychological Hx Reported Smoking Status: Never smoker Past Alcohol Use History: None Reported Past Drug Use History: None Reported Medications and Allergies Home Medications Medication Instructions Recorded Confirmed Type Albuterol Sulfate [Proair Hfa] 2 puff INHALATION RT-QID PRN 07/04/24 07/04/24 History Allergies Allergy/AdvReac Type Severity Reaction Status Date / Time amoxicillin Allergy Rash/Hives Verified 07/04/24 10:28 Physical Exam Vitals: Vital Signs Temp Pulse Pulse Resp BP BP Pulse Ox 07/05/24 06:54 97.3 F L 75 17 135/86 94 L 07/05/24 02:25 97.7 F 82 15 128/77 97 07/04/24 20:00 73 15 07/04/24 19:06 98.5 F 73 15 114/62 94 L 07/04/24 16:00 18 07/04/24 15:52 97.4 F L 76 16 135/88 95 07/04/24 15:25 97.6 F 77 18 128/81 96 07/04/24 13:18 76 18 136/75 90 L 07/04/24 11:09 81 20 154/76 93 L 07/04/24 10:00 83 22 130/74 92 L 07/04/24 09:30 82 20 160/88 92 L 07/04/24 08:31 98 F 104 H 20 158/102 99 Intake and Output 07/04/24 07/05/24 07/05/24 22:59 06:59 14:59 Other: # Voids 1 3 Results 07/04/24 09:18 07/04/24 09:18 Cardiac Enzymes 07/04/24 07/04/24 Range/Units 09:18 09:18 AST 20 (17-59) U/L Troponin I <0.012 (0.000-0.034) ng/mL Coagulation 07/04/24 Range/Units 09:18 PT 11.5 (10.0-12.5) sec APTT 23.1 (22.0-30.0) sec CBC 07/04/24 Range/Units 09:18 WBC 12.1 H (3.8-10.6) k/uL RBC 5.13 (4.30-5.90) m/uL Hgb 14.7 (13.0-17.5) gm/dL Hct 43.7 (39.0-53.0) % Plt Count 200 (150-450) k/uL Comprehensive Metabolic Panel 07/04/24 Range/Units 09:18 Sodium 137 (137-145) mmol/L Potassium 3.9 (3.5-5.1) mmol/L Chloride 103 (98-107) mmol/L Carbon Dioxide 26 (22-30) mmol/L BUN 17 (9-20) mg/dL Creatinine 0.82 (0.66-1.25) mg/dL Glucose 139 H (74-99) mg/dL Calcium 9.1 (8.4-10.2) mg/dL AST 20 (17-59) U/L ALT 24 (4-49) U/L Alkaline Phosphatase 54 (38-126) U/L Total Protein 6.8 (6.3-8.2) g/dL Albumin 3.8 (3.5-5.0) g/dL Current Medications Generic Name Dose Route Start Last Admin Trade Name Freq PRN Reason Stop Dose Admin Albuterol Sulfate 2.5 mg 07/05/24 01:46 Albuterol Nebulized 2.5 Mg/3 Ml INHALATION RT-TID PRN Shortness Of Breath Or Wheezing Naloxone HCl 0.2 mg 07/04/24 12:02 Naloxone 0.4 Mg/Ml 1 Ml Vial IV Q2M PRN Opioid Reversal Intake and Output 07/04/24 07/05/24 07/05/24 22:59 06:59 14:59 Other: # Voids 1 3 07/04/24 09:18 07/04/24 09:18
--- NOTE | 2024-07-05 13:08 | CA ---
Dobutamine Stress Echocardiogram Report Rome Jansen Age: 39 Gender: M : 1985 Exam Date: 07/05/2024 11:35 Exam Location: [facility] Ordering Physician: Smiley Marcelino Referring Physician: [id number] Cork Mixer: Milka Oscar RDCS Technologist: Ht (in): 83 Wt (lb): 505 Procedure CPT: Indication: CP, SOB ICD-9 Codes: Rhythm: Patient History: CHEST PAIN, DIFFICULTY IN BREATHING, PALPITATIONS, HTN Cardiac Medications: Medications in past 24 hours: Contrast: Definity Total Dose (mL): 2 Stress Results Protocol: Dobutamine Peak Dose (???g/kg/min): 40 Duration (min:sec): Atropine:(mg) None Target HR: 155 Double Product: 34022 Resting HR: 66 Resting BP: 132 / 81 Peak HR: 152 Peak BP: 197 / 65 Max Predicted HR: 182 84 % Max Predicted HR Stress Summary: BP Response: Reason for Termination: DIRECTED PER LACQUER SHADER Cardiac Symptoms: NO SYMPTOMS ECG Analysis Resting EKG: Normal sinus rhythm, normal ECG Stress EKG: No abnormal ST/T wave changes with exercise Arrhythmia: Occasional APCs Echo Analysis Base Echo Analysis: Normal resting echocardiogram. Low Echo Anaylsis: Normal wall thickening and motion Peak Echo Analysis: Normal wall motion augmentation with decrease in the cavity size Recovery Echo: Normal wall motion MEASUREMENTS (Male/Female) Normal Values CONCLUSIONS Normal electrocardiographic response to dobutamine infusion Normal stress echocardiogram with no evidence of stress-induced ischemia Dr. Lili Lynn MD (Electronically Signed) Final Date: 05 July 2024 13:07
[2024-07-05 14:57] VITALS: BP 115/70; PULSE 74; RESP 19; TEMP 97.7
[2024-07-06 02:51] LABS: Chol/HDL Ratio 3.83 Ratio; LDL Cholesterol,Calculated 75.1 mg/dL (0.0-131.0)
--- NOTE | 2024-07-08 08:36 | P.DS ---
Providers Date of admission: 07/04/24 13:49 Attending physician: Toby Reddy MD Consults: 07/04/24 12:18 Consult Physician Routine Consulting Provider: Luke Bañuelos Consult Reason/Comments: Exertional dyspnea, hypoxia Do you want consulting provider notified?: Yes Consult Physician Urgent Consulting Provider: Chano Champagne Consult Reason/Comments: Exertional dyspnea Do you want consulting provider notified?: Yes Primary care physician: Stated None Hospital Course: Final Diagnosis Shortness of breath and hypoxemia secondary to restrictive lung disease obesity hypoventilation syndrome acute coronary syndrome has been ruled out Leukocytosis reactive without any clear evidence of infection History of asthma Hypertension Discharge Disposition Patient stable for discharge home recommend to complete an outpatient sleep study and patient was referred to follow-up with Dr. Bañuelos on an outpatient basis. Patient to continue albuterol inhaler as needed. Patient has no PCP and information was given to establish care in the area. Follow up with cardiology in 1 week. Hospital Course This is a 39-year-old male who came in with complaints of shortness of breath been ongoing for about a month which was progressive in nature. Patient recently was diagnosed with influenza A he was treated for antibiotics for pneumonia. Patient is morbidly obese with a BMI 51.5 he does have a history of asthma. His workup here is essentially negative patient has had mild leukocytosis which is resolved. His chest CT did not show any pulmonary embolism or pneumonia. Patient denies any fever or chills he is not having any cough. He does have some mild pedal edema however he denies any orthopnea or paroxysmal nocturnal dyspnea. Cardiology and pulmonology were consulted. Echocardiogram reveals an ejection fraction of 55 to 60% with normal left ventricular size and systolic function with very limited Doppler study with mild tricuspid regurgitation and a dilated ascending aorta. Patient underwent a dobutamine stress echo which reveals normal electrographic response to dobutamine infusion and normal stress echocardiogram with no evidence of stress- induced ischemia. Patient's lipid panel reveals a triglyceride level of 160 cholesterol 145 LDL of 75.1 HDL 47.9 hemoglobin A1c of 5.9. Troponin level has been negative and his proBNP is not elevated. Patient was cleared for discharge home recommending to undergo a sleep study on an outpatient basis. Please see medication reconciliation for a list of current medications. Thank you for allowing us to participate in the care of this patient. The impression and plan of care has been dictated by Josie Wesley Nurse Practitioner as directed. Dr. Jennifer MD I have performed a history and physical examination and medical decision making of this patient, discussed the same with the dictator, and agree with the dictators assessment and plan as written, documented as a scribe. Based on total visit time, I have performed more than 50% of this visit. Patient Condition at Discharge: Stable Plan - Discharge Summary Discharge Rx Participant: No New Discharge Prescriptions: Continue Albuterol Sulfate [Proair Hfa] 2 puff INHALATION RT-QID PRN PRN Reason: Shortness Of Breath Discharge Medication List Albuterol Sulfate [Proair Hfa] 2 puff INHALATION RT-QID PRN 07/04/24 [History] Follow up Appointment(s)/Referral(s): Lili Lynn MD [STAFF PHYSICIAN] - 1 Week [facility] [NON-STAFF] - 1-2 days (Contact a primary care office to become established with a provider. ) None,Stated [Primary Care Provider] - 1-2 days Luke Bañuelos MD [STAFF PHYSICIAN] - 1 Week Patient Instructions/Handouts: Shortness of Breath (DC) Activity/Diet/Wound Care/Special Instructions: Follow up with Dr Bañuelos to discuss sleep study evaluation Follow up with Dr Lynn with cardiology as needed Establish care with a PCP Discharge/Stand Alone Forms: Area PCPs Discharge Disposition: HOME SELF-CARE
== END 2024-07-05 16:57 | disposition home or self-care (01) ==
LOC: EC 08:25 → 6NMEDSUR 13:49
PROVIDERS: ADMIT Internal Medicine; ATTEND Internal Medicine
DX: E66.2 Morbid (severe) obesity with alveolar hypoventilation (principal); D72.829 Elevated white blood cell count, unspecified; I10 Essential (primary) hypertension; J45.909 Unspecified asthma, uncomplicated; Z68.43 Body mass index [BMI] 50.0-59.9, adult; Z79.899 Other long term (current) drug therapy; Z88.0 Allergy status to penicillin
CPT/HCPCS: 99285; 36415; 93005; 85379; 83880; 80061; 80053; 84443; 83605; 83735; 84484; 85025; 85610; 85730; 83036; 87636; 71046; 71275; G0378 ×2; C8929; C8930; Q9957 ×2; Q9967; 93306; 93351

== ENCOUNTER → 2024-09-04 | Outpatient (CLI) | payer OTHER ==
[2024-09-04 13:28] LABS: Partial Thromboplastin Time 24.7 sec (22.0-30.0); Prothrombin Time 11.4 sec (10.0-12.5)
[2024-09-04 16:04] LABS: Basophils # (A) 0.03 X 10*3/uL (0.00-0.10); Basophils % (A) 0.3 %; Eosinophils % (A) 2.1 %; HCT 43.3 % (39.6-50.0); HGB 14.4 g/dL (13.0-17.0); Lymphocytes # (A) 2.48 X 10*3/uL (0.90-5.00); Lymphocytes % (A) 26.3 %; MCH 28.9 pg (27.0-32.0); MCHC 33.3 g/dL (32.0-37.0); MCV 86.9 FL (80.0-97.0); Mean Platelet Volume 9.7 FL (9.5-12.2); Monocytes # (A) 0.45 X 10*3/uL (0.20-1.00); Monocytes % (A) 4.8 %; NRBC Per 100 WBC 0 X 10*3/uL (0.00-0.01); Neutrophils # (A) 6.25 X 10*3/uL (1.80-7.70); Neutrophils % (A) 66.2 %; Platelet Count 227 X 10*3/uL (140-440); RBC 4.98 X 10*6/uL (4.40-5.60); RDW 13.7 % (11.5-14.5); WBC 9.44 X 10*3/uL (4.50-10.00)
== END | disposition home or self-care (01) ==
LOC: LABWHC1 12:25
DX: K92.1 Melena (principal)
CPT/HCPCS: 36415; 85025; 85610; 85730; 86141

== ENCOUNTER → 2024-10-24 | Outpatient (CLI) | payer OTHER ==
--- NOTE | 2024-10-24 12:29 | CT ---
EXAMINATION TYPE: CT abdomen w con DATE OF EXAM: 10/24/2024 11:23 AM COMPARISON: None. CLINICAL INDICATION: Male, 39 years old with history of R10.31 RLQ PAIN,R10.32 LLQ PAIN, Rectal bleed ing. RLQ abd pain. TECHNIQUE:CT scan of the abdomen is performed with Oral Contrast and with IV Contrast, patient inject ed with 100 ml mL of Isovue 300. CT DLP: 1849 mGycm, Automated exposure control for dose reduction was used. FINDINGS: LUNG BASES-: No visible nodule. No infiltrate. LIVER/GB: No calcified gallstones. No space occupying hepatic lesion. Biliary tree is of normal ca liber. PANCREAS: No inflammation. No distinct mass. SPLEEN: No splenic enlargement. No lesion seen. ADRENALS: No nodule. No thickening. KIDNEYS/BLADDER: No hydronephrosis. No nephrolithiasis. No distinct renal mass. Urinary bladder g rossly unremarkable. BOWEL: Nonvisualization of the appendix. Right lower quadrant not imaged in its entirety given reques t for a CT abdomen. Normal bowel caliber. No inflammation. LYMPH NODES: No greater than 1cm abdominal or pelvic lymph nodes are appreciated. AORTA: No significant abnormality. OSSEOUS STRUCTURES: No significant abnormality is seen. OTHER: No significant additional abnormality is seen. IMPRESSION: 1. No acute process seen on the CT of the abdomen. [facility] Guillermina Lau, , 10/24/2024 12:26 PM
== END | disposition home or self-care (01) ==
LOC: RADCTMAIN 09:57
DX: R10.31 Right lower quadrant pain (principal); R10.32 Left lower quadrant pain
CPT/HCPCS: 74160; Q9967